=== PATIENT | male | born 1990 | race Caucasian/White ===

== ENCOUNTER 2018-09-19 18:45 | Emergency (ER) | payer OTHER ==
[2018-09-19 19:13] VITALS: BP 123/79
--- NOTE | 2018-09-19 19:27 | UC ---
Lower Extremity/Ankle HPI - HPI Summary HPI Summary: Playing football yesterday and twisted right ankle. Clinch a pop and had immediate pain with difficulty walking on it. More swelling and bruising today. - History of Current Complaint Chief Complaint: UCLowerExtremity Stated Complaint: RT ANKLE INJURY Hx Obtained From: Patient Onset/Duration: Sudden Onset, Lasting Days - 1, Worse Since - onset with more swelling Severity Initially: Severe Severity Currently: Moderate Pain Intensity: 0 Aggravating Factor(s): Standing, Ambulation Alleviating Factor(s): Rest, Elevation Able to Bear Weight: Yes - Allergies/Home Medications Allergies/Adverse Reactions: Allergies Allergy/AdvReac Type Severity Reaction Status Date / Time clindamycin Allergy Swelling Verified 09/19/18 19:13 Of Face,Lips,& Throat Home Medications: Home Medications NK [No Home Medications Reported] 09/19/18 [History Confirmed 09/19/18] PMH/Surg Hx/FS Hx/Imm Hx Previously Healthy: Yes - Surgical History Surgical History: None - Family History Known Family History: Positive: Hypertension, Diabetes - Social History Occupation: Employed Full-time Lives: With Family Alcohol Use: Weekly Alcohol Amount: weekends Substance Use Type: None Smoking Status (MU): Never Smoked Tobacco Type: Smokeless Tobacco Review of Systems All Other Systems Reviewed And Are Negative: Yes Skin: Positive: Bruising - right ankle Musculoskeletal: Positive: Arthralgia - right ankle Physical Exam Triage Information Reviewed: Yes Appearance: Well-Appearing, Well-Nourished, Pain Distress - with walking and ankle exam. Vital Signs: Initial Vital Signs Temp 99.1 F 09/19/18 19:07 Pulse 66 09/19/18 19:07 Resp 18 09/19/18 19:07 BP 123/79 09/19/18 19:07 Pulse Ox 100 09/19/18 19:07 Vital Signs Reviewed: Yes Eyes: Positive: Conjunctiva Clear Neck exam: Normal Respiratory Exam: Normal Cardiovascular Exam: Normal Musculoskeletal: Positive: Strength Limited @ - right ankle, flexion, ext, inversion, eversion., Other: - right ankle with significant lateral swelling and bruising. Tender lateral > medial malleolus. Tender Ant and Post TFL and CFL. Right crusher tender over the base of the 5th metatarsal. Neurological Exam: Normal Psychological Exam: Normal Skin Exam: Normal Diagnostics - Radiology No standard instances Radiology Interpretation Completed By: ED Physician Summary of Radiographic Findings: Negative ankle and foot for fracture. Lower Extremity Course/Dx - Differential Dx/Diagnosis Differential Diagnosis/HQI/PQRI: Contusion, Fracture (Closed), Sprain, Strain Provider Diagnosis: Sprain and strain of right ankle Discharge - Sign-Out/Discharge Documenting (check all that apply): Patient Departure All imaging exams completed and their final reports reviewed: No - Discharge Plan Condition: Stable Disposition: HOME Patient Education Materials: Ankle Sprain (ED) Forms: *Work Release Referrals: No Primary Care Phys,NOPCP [Primary Care Provider] - Osman Eldridge MD [Medical Doctor] - 1 Day (follow up on return to work.) - Billing Disposition and Condition Condition: STABLE Disposition: Home
--- NOTE | 2018-09-20 08:33 | ED ---
Progress - Progress Note Progress Note: Final Xray read reviewed: Lateral STS on ankle. Course/Dx - Diagnoses Provider Diagnoses: Sprain and strain of right ankle Discharge - Sign-Out/Discharge Documenting (check all that apply): Patient Departure All imaging exams completed and their final reports reviewed: Yes - Discharge Plan Condition: Stable Disposition: HOME Patient Education Materials: Ankle Sprain (ED) Forms: *Work Release Referrals: Osman Eldridge MD [Medical Doctor] - 1 Day (follow up on return to work.) No Primary Care Phys,NOPCP [Primary Care Provider] - - Billing Disposition and Condition Condition: STABLE Disposition: Home
== END 2018-09-19 20:01 | disposition home or self-care (01) ==
LOC: UCCORT 18:45
DX: S93.401A Sprain of unspecified ligament of right ankle, initial encounter (principal); X50.1XXA Overexertion from prolonged static or awkward postures, initial encounter; Y93.61 Activity, american tackle football; Y92.9 Unspecified place or not applicable
CPT/HCPCS: 99203; G0463